=== PATIENT | female | born 1930 | race Caucasian/White ===

== ENCOUNTER 2016-04-05 15:01 | Emergency (ER) | payer OTHER ==
[~2016-04-05] VITALS: Ht 165.1 cm; Wt 87.5 kg
[~2016-04-05 15:01] MED LIST: ADULT LOW DOSE81 M1 PO; ADVAIR HFA120 INHALA IH; ALPRAZOLAM0.5 MG PO; ASPIRIN PO; BUSPAR10 MG PO; BUSPIRONE HCL10 MG PO; Buspar PO; CEFUROXIME500 MG PO; CELEBREX200 MG PO; Cymbalta PO; DUONEB 2.5-0.5 M3 ML AEROSOL; FUROSEMIDE40 MG PO; IMDUR60 MG PO; ISOSORBIDE MONO60 MG PO; Imdur PO; K-DUR20 MEQ PO; KEFLEX500 MG PO; LEVAQUIN750 MG PO; LISINOPRIL5 MG PO; METFORMIN HCL500 MG PO; NEXIUM40 MG PO; PREDNISONE10 MG PO; PREVACID30 MG PO; Prevacid PO; REMERON15 M2 PO; ROBITUSSIN100 MG/5 M PO; ST. JOSEPH ASPI81 MG PO; TOPROL XL50 MG PO; TRAMADOL HCL50 MG PO; Toprol XL PO; ULTRAM50 MG PO; Ultram PO; VITAMIN D1000 UNIT PO; VYTORIN 10/41 TABLET PO; Vytorin 10/20 PO; XANAX0.5 MG PO; Xanax PO
[2016-04-05 16:55] LABS: HEMATOCRIT 36.6 % (36.0-46.0); MCH 30.7 PG (29.0-34.0); MCHC 33.3 G/DL (30.0-36.0); MCV 92.2 FL (83-99); PLATELET COUNT 152 K/uL (156-360); RBC DIS.WIDTH-CV 12.7 % (11.8-14.6); RBC DIS.WIDTH-SD 41.9 % (39-53); RED BLOOD COUNT 3.97 M/uL (3.80-5.20); WHITE BLOOD COUNT 4.6 K/uL (4.1-10.2)
[2016-04-05 17:05] LABS: CHLORIDE 103 mEq/L (99-109); POTASSIUM 4.4 mEq/L (3.7-5.4); SODIUM 135 mEq/L (136-147)
[2016-04-05 17:06] LABS: GLUCOSE 100 mg/dL (70-99)
[2016-04-05 17:08] LABS: ADD MIUA? NO; BILIRUBIN NEGATIVE; BLOOD NEGATIVE; COLOR YELLOW ((YELLOW)); GLUCOSE (STRIP) NEGATIVE; KETONES NEGATIVE; LEUKOCYTES NEGATIVE; NITRITE NEGATIVE; PROTEIN (STRIP) NEGATIVE; UCUL ADDED? NO; UROBILINOGEN 0.2 MG/DL (0.2-1.0)
[2016-04-05 17:08] LABS: ANION GAP 6 MEQ/L (2-14)
[2016-04-05 17:10] LABS: GFR ESTIMATE (CALCULATED) 50 mL/min/
[2016-04-05 17:11] LABS: UREA NITROGEN (BUN) 21 mg/dL (9-23)
[2016-04-05] MEDS ORDERED: MIRALAX17 GM PO (17:44)
[2016-04-05 18:06] VITALS: BP 160/77
== END 2016-04-05 18:32 | disposition home or self-care (01) ==
LOC: EME 15:01
PROVIDERS: Physician Assistant
DX: K59.00 Constipation, unspecified (principal)
CPT/HCPCS: 74020; 80048; 81003; 85027; 99281; 99284

== ENCOUNTER 2016-07-18 17:29 | Emergency (ER) | payer OTHER ==
[~2016-07-18] VITALS: Ht 165.1 cm; Wt 90.1 kg
[~2016-07-18 17:29] MED LIST changes: +MIRALAX17 GM PO
[2016-07-18 17:36] VITALS: BP 138/83
== END 2016-07-18 18:54 | disposition home or self-care (01) ==
LOC: EXP 17:29 → EME 17:29 → EXP 18:54
DX: S61.212A Laceration without foreign body of right middle finger without damage to nail, initial encounter (principal); W18.30XA Fall on same level, unspecified, initial encounter; Z23 Encounter for immunization; Z79.82 Long term (current) use of aspirin; Z87.891 Personal history of nicotine dependence
CPT/HCPCS: 99281; 99284

== ENCOUNTER 2016-10-27 03:51 | Emergency (ER) | payer OTHER ==
[~2016-10-27] VITALS: Ht 165.1 cm; Wt 86.5 kg
[2016-10-27 06:46] VITALS: BP 163/83
== END 2016-10-27 06:47 | disposition home or self-care (01) ==
LOC: EME 03:51
PROC: 0HQ1XZZ Repair Face Skin, External Approach (ICD-10-PCS; principal; 2016-10-27)
DX: S01.81XA Laceration without foreign body of other part of head, initial encounter (principal); S61.412A Laceration without foreign body of left hand, initial encounter; W01.198A Fall on same level from slipping, tripping and stumbling with subsequent striking against other object, initial encounter; Z79.82 Long term (current) use of aspirin; F03.90 Unspecified dementia, unspecified severity, without behavioral disturbance, psychotic disturbance, mood disturbance, and anxiety; I10 Essential (primary) hypertension; Z95.5 Presence of coronary angioplasty implant and graft; Z87.891 Personal history of nicotine dependence
CPT/HCPCS: 70450; 73110; 73130; 81003; 99281; 99284

== ENCOUNTER 2017-04-04 15:22 | Inpatient (IN) | payer OTHER ==
[~2017-04-04] VITALS: Ht 165.1 cm; Wt 75.5 kg
[2017-04-04 16:04] LABS: HEMATOCRIT 33.4 % (36.0-46.0); HEMOGLOBIN 10.9 G/DL (11.9-15.5); MCH 30.8 PG (29.0-34.0); MCHC 32.6 G/DL (30.0-36.0); MCV 94.4 FL (83-99); PLATELET COUNT 132 K/uL (156-360); RBC DIS.WIDTH-CV 13.2 % (11.8-14.6); RBC DIS.WIDTH-SD 45.7 % (39-53); RED BLOOD COUNT 3.54 M/uL (3.80-5.20); WHITE BLOOD COUNT 8.5 K/uL (4.1-10.2)
[2017-04-04 16:13] LABS: CHLORIDE 105 mEq/L (99-109); POTASSIUM 4.4 mEq/L (3.7-5.4); SODIUM 142 mEq/L (136-147)
[2017-04-04 16:14] LABS: GLUCOSE 92 mg/dL (70-99)
[2017-04-04 16:18] LABS: CREATININE 1.1 mg/dL (0.6-1.3); GFR ESTIMATE (CALCULATED) 50 mL/min/
[2017-04-04 16:21] LABS: CREATINE KINASE 142 IU/L (1-294)
[2017-04-04 16:27] LABS: TROP-I INTERPRETATION NEGATIVE; TROPONIN-I 0.11 ng/mL (0.0-0.30)
[2017-04-04 16:35] LABS: APPEARANCE SL.HAZY ((CLEAR)); BILIRUBIN NEGATIVE; BLOOD MODERATE; COLOR YELLOW ((YELLOW)); GLUCOSE (STRIP) NEGATIVE; KETONES NEGATIVE; LEUKOCYTES LARGE; NITRITE POSITIVE; PROTEIN (STRIP) 30; SPECIFIC GRAVITY 1.012 (1.000-1.030); UROBILINOGEN 0.2 MG/DL (0.2-1.0)
[2017-04-04 16:40] LABS: BACTERIA 3+ /HPF; EPITHELIAL CELLS RARE /HPF; MUCUS TRACE /LPF; RED BLOOD CELLS 0-5 /HPF (0-5); WHITE BLOOD CELLS TNTC /HPF (0-5)
[2017-04-04 17:01] LABS: UREA NITROGEN (BUN) 27 mg/dL (9-23)
[2017-04-04] MEDS ORDERED: ALPRAZOLAM0.5 MG PO (19:07)
[2017-04-04] MEDS ORDERED: CITALOPRAM HBR40 MG PO (19:08)
[2017-04-04] MEDS ORDERED: MIRTAZAPINE15 MG PO (19:11)
[2017-04-04] MEDS ORDERED: SIMVASTATIN40 MG PO (19:11)
[2017-04-04] MEDS ORDERED: BUSPAR15 MG PO (19:12)
[2017-04-04] MEDS ORDERED: PROBIOTIC1 EAC1 PO (19:18)
[2017-04-04] MEDS ORDERED: TYLENOL EXTRA500 MG PO (19:19)
[2017-04-04] MEDS ORDERED: METAMUCIL POWD822 G1 PO (19:20)
[2017-04-04 22:10] VITALS: BP 124/62
[2017-04-04 23:28] VITALS: BP 128/65
[2017-04-05 03:41] VITALS: BP 116/57
[2017-04-05 06:44] LABS: BASOPHIL COUNT 0.1 K/uL (0-0.1); EOSINOPHIL (%) 1.6 % (0-5); EOSINOPHIL COUNT 0.1 K/uL (0-0.3); HEMATOCRIT 31.2 % (36.0-46.0); HEMOGLOBIN 9.9 G/DL (11.9-15.5); IMMATURE GRANULOCYTE (%) 0.2 % (0.0-0.7); LYMPHOCYTE (%) 19.8 % (15-42); MCH 30.5 PG (29.0-34.0); MCHC 31.7 G/DL (30.0-36.0); MONOCYTE (%) 12.3 % (3-12); MONOCYTE COUNT 0.6 K/uL (0-0.8); NEUTROPHIL (%) 65.1 % (45-76); NEUTROPHIL COUNT 3.3 K/uL (1.8-6.4); PLATELET COUNT 103 K/uL (156-360); RBC DIS.WIDTH-CV 13.6 % (11.8-14.6); RED BLOOD COUNT 3.25 M/uL (3.80-5.20); WHITE BLOOD COUNT 5.1 K/uL (4.1-10.2)
[2017-04-05 07:16] LABS: CHLORIDE 107 MEQ/L (99-109); GFR ESTIMATE (CALCULATED) 55 mL/min/; GLUCOSE 81 mg/dL (70-99); SODIUM 141 MEQ/L (136-147); UREA NITROGEN (BUN) 21 mg/dL (9-23)
[2017-04-05 08:19] VITALS: BP 124/58
[2017-04-05 11:36] VITALS: BP 103/53
[2017-04-05 16:00] VITALS: BP 123/58
[2017-04-05 19:24] VITALS: BP 116/55
[2017-04-06 00:15] VITALS: BP 150/67
[2017-04-06 04:19] VITALS: BP 117/58
[2017-04-06 07:00] VITALS: BP 130/58
[2017-04-06 11:54] VITALS: BP 138/82
[2017-04-06 15:32] VITALS: BP 96/42
[2017-04-06 21:21] VITALS: BP 102/62
[2017-04-07] VITALS (7 sets, daily range): BP systolic 100–133; BP diastolic 52–68
[2017-04-07 06:38] LABS: BASOPHIL (%) 1.4 % (0-1); EOSINOPHIL (%) 3.8 % (0-5); EOSINOPHIL COUNT 0.1 K/uL (0-0.3); HEMATOCRIT 30.9 % (36.0-46.0); HEMOGLOBIN 9.8 G/DL (11.9-15.5); IMMATURE GRANULOCYTE (%) 0.3 % (0.0-0.7); LYMPHOCYTE (%) 24.6 % (15-42); LYMPHOCYTE COUNT 0.7 K/uL (1.0-2.8); MCH 30.5 PG (29.0-34.0); MCHC 31.7 G/DL (30.0-36.0); MCV 96.3 FL (83-99); MONOCYTE (%) 12.1 % (3-12); MONOCYTE COUNT 0.4 K/uL (0-0.8); NEUTROPHIL (%) 57.8 % (45-76); NEUTROPHIL COUNT 1.7 K/uL (1.8-6.4); PLATELET COUNT 100 K/uL (156-360); RBC DIS.WIDTH-CV 13.6 % (11.8-14.6); RBC DIS.WIDTH-SD 48.1 % (39-53); RED BLOOD COUNT 3.21 M/uL (3.80-5.20); WHITE BLOOD COUNT 2.9 K/uL (4.1-10.2)
[2017-04-07 07:06] LABS: CHLORIDE 109 MEQ/L (99-109); CREATININE 0.9 MG/DL (0.6-1.3); GFR ESTIMATE (CALCULATED) > 59 mL/min/; GLUCOSE 94 mg/dL (70-99); POTASSIUM 3.9 MEQ/L (3.7-5.4); SODIUM 144 MEQ/L (136-147); UREA NITROGEN (BUN) 13 mg/dL (9-23)
[2017-04-07 21:14] LABS: C DIFF TOXIN NEGATIVE (NEGATIVE)
[2017-04-08 03:41] VITALS: BP 109/55
[2017-04-08 07:26] VITALS: BP 78/42
[2017-04-08 15:42] VITALS: BP 64/36
[2017-04-09 00:23] VITALS: BP 101/50
[2017-04-09 06:50] VITALS: BP 188/86
[2017-04-09 16:26] VITALS: BP 137/65
[2017-04-09 23:13] VITALS: BP 120/57
[2017-04-10 07:10] LABS: BASOPHIL COUNT 0.1 K/uL (0-0.1); EOSINOPHIL (%) 3.8 % (0-5); EOSINOPHIL COUNT 0.2 K/uL (0-0.3); IMMATURE GRANULOCYTE (%) 0.2 % (0.0-0.7); LYMPHOCYTE (%) 18.9 % (15-42); LYMPHOCYTE COUNT 0.9 K/uL (1.0-2.8); MCH 29.7 PG (29.0-34.0); MCHC 31.3 G/DL (30.0-36.0); MONOCYTE (%) 10.3 % (3-12); MONOCYTE COUNT 0.5 K/uL (0-0.8); NEUTROPHIL (%) 65.8 % (45-76); NEUTROPHIL COUNT 3.1 K/uL (1.8-6.4); PLATELET COUNT 128 K/uL (156-360); RBC DIS.WIDTH-CV 13.5 % (11.8-14.6); RBC DIS.WIDTH-SD 46.8 % (39-53); RED BLOOD COUNT 3.37 M/uL (3.80-5.20); WHITE BLOOD COUNT 4.8 K/uL (4.1-10.2)
[2017-04-10 07:38] LABS: CHLORIDE 105 MEQ/L (99-109); GFR ESTIMATE (CALCULATED) 55 mL/min/; GLUCOSE 89 mg/dL (70-99); SODIUM 144 MEQ/L (136-147); UREA NITROGEN (BUN) 16 mg/dL (9-23)
[2017-04-10 08:00] VITALS: BP 140/76
[2017-04-10] MEDS ORDERED: PANTOPRAZOLE SO40 MG PO (11:02)
== END 2017-04-10 13:34 | DRG 194 ==
LOC: EME 15:22 → EDOF 19:49 → 2EAST 19:49 → ENRESERV 19:50 → 2EAST 21:06
PROVIDERS: Family Medicine Sports Medicine; Physician Assistant
DX: J15.9 Unspecified bacterial pneumonia (principal); J44.1 Chronic obstructive pulmonary disease with (acute) exacerbation; J44.0 Chronic obstructive pulmonary disease with (acute) lower respiratory infection; N30.00 Acute cystitis without hematuria; S01.01XA Laceration without foreign body of scalp, initial encounter; S20.229A Contusion of unspecified back wall of thorax, initial encounter; Y92.002 Bathroom of unspecified non-institutional (private) residence as the place of occurrence of the external cause; Y93.E1 Activity, personal bathing and showering; W18.2XXA Fall in (into) shower or empty bathtub, initial encounter; K21.9 Gastro-esophageal reflux disease without esophagitis; E78.5 Hyperlipidemia, unspecified; I25.10 Atherosclerotic heart disease of native coronary artery without angina pectoris; I50.9 Heart failure, unspecified; I11.0 Hypertensive heart disease with heart failure; E66.9 Obesity, unspecified; F32.9 Major depressive disorder, single episode, unspecified; I44.7 Left bundle-branch block, unspecified; B96.20 Unspecified Escherichia coli [E. coli] as the cause of diseases classified elsewhere; F41.1 Generalized anxiety disorder; Z98.61 Coronary angioplasty status; Z87.01 Personal history of pneumonia (recurrent); R74.8 Abnormal levels of other serum enzymes; E11.9 Type 2 diabetes mellitus without complications; I71.2 Thoracic aortic aneurysm, without rupture; Z16.24 Resistance to multiple antibiotics; Z16.12 Extended spectrum beta lactamase (ESBL) resistance; Z85.3 Personal history of malignant neoplasm of breast; R09.02 Hypoxemia; F03.90 Unspecified dementia, unspecified severity, without behavioral disturbance, psychotic disturbance, mood disturbance, and anxiety; D69.6 Thrombocytopenia, unspecified; D64.9 Anemia, unspecified
CPT/HCPCS: 70450; 71046; 71250; 71275; 72125; 74174; 80048; 81003; 82550; 83605; 84484; 85025; 85027; 87040; 87070; 87077; 87086; 87186; 87205; 87449; 87493; 93005; 94640; 94640 76; 94760; 94799; 99202; 99281; 99285; J0456; J0696; J1335; J1650; J7030; J7040; J7050

== ENCOUNTER 2017-05-04 12:21 | Emergency (ER) | payer OTHER ==
[~2017-05-04] VITALS: Ht 165.1 cm; Wt 78.4 kg
[~2017-05-04 12:21] MED LIST changes: +BUSPAR15 MG PO; +CITALOPRAM HBR40 MG PO; +METAMUCIL POWD822 G1 PO; +MIRTAZAPINE15 MG PO; +PANTOPRAZOLE SO40 MG PO; +PROBIOTIC1 EAC1 PO; +SIMVASTATIN40 MG PO; +TYLENOL EXTRA500 MG PO
[2017-05-04 13:27] LABS: EOSINOPHIL (%) 0.5 % (0-5); HEMATOCRIT 36.3 % (36.0-46.0); HEMOGLOBIN 11.2 G/DL (11.9-15.5); IMMATURE GRANULOCYTE (%) 0.5 % (0.0-0.7); LYMPHOCYTE (%) 12.2 % (15-42); LYMPHOCYTE COUNT 0.5 K/uL (1.0-2.8); MCH 30.4 PG (29.0-34.0); MCHC 30.9 G/DL (30.0-36.0); MCV 98.6 FL (83-99); MONOCYTE (%) 9.4 % (3-12); MONOCYTE COUNT 0.4 K/uL (0-0.8); NEUTROPHIL (%) 76.4 % (45-76); NEUTROPHIL COUNT 3.2 K/uL (1.8-6.4); PLATELET COUNT 111 K/uL (156-360); RBC DIS.WIDTH-CV 13.2 % (11.8-14.6); RBC DIS.WIDTH-SD 47.6 % (39-53); RED BLOOD COUNT 3.68 M/uL (3.80-5.20); WHITE BLOOD COUNT 4.2 K/uL (4.1-10.2)
[2017-05-04 13:39] LABS: CHLORIDE 104 mEq/L (99-109); POTASSIUM 4.6 mEq/L (3.7-5.4); SODIUM 143 mEq/L (136-147)
[2017-05-04 13:40] LABS: GLUCOSE 112 mg/dL (70-99)
[2017-05-04 13:44] LABS: GFR ESTIMATE (CALCULATED) 55 mL/min/
[2017-05-04 13:45] LABS: UREA NITROGEN (BUN) 16 mg/dL (9-23)
[2017-05-04 13:48] LABS: TROP-I INTERPRETATION NEGATIVE; TROPONIN-I 0.02 ng/mL (0.0-0.30)
[2017-05-04 17:00] VITALS: BP 117/75
== END 2017-05-04 18:51 ==
LOC: EME 12:21
PROVIDERS: Emergency Medicine
DX: I11.0 Hypertensive heart disease with heart failure (principal); I50.9 Heart failure, unspecified; R00.0 Tachycardia, unspecified; I48.91 Unspecified atrial fibrillation; F03.90 Unspecified dementia, unspecified severity, without behavioral disturbance, psychotic disturbance, mood disturbance, and anxiety; J44.9 Chronic obstructive pulmonary disease, unspecified; I25.10 Atherosclerotic heart disease of native coronary artery without angina pectoris; F32.9 Major depressive disorder, single episode, unspecified; Z95.5 Presence of coronary angioplasty implant and graft; Z87.891 Personal history of nicotine dependence; Z90.49 Acquired absence of other specified parts of digestive tract; Z91.81 History of falling; Z88.5 Allergy status to narcotic agent
CPT/HCPCS: 71045; 80048; 83880; 84484; 85025; 93005; 99281; 99285; J1940; J2060

== ENCOUNTER 2017-05-25 13:33 | Emergency (ER) | payer OTHER ==
[~2017-05-25] VITALS: Ht 165.1 cm; Wt 85.0 kg
[2017-05-25 14:34] LABS: INTER. NORMALIZED RATIO 1.1
[2017-05-25 14:37] LABS: PTT 28.8 SEC (25-37)
[2017-05-25 14:50] LABS: TROP-I INTERPRETATION NEGATIVE; TROPONIN-I 0.02 ng/mL (0.0-0.30)
[2017-05-25] MEDS ORDERED: ELIQUIS5 MG PO (16:05)
[2017-05-25 16:16] LABS: APPEARANCE CLEAR ((CLEAR)); BILIRUBIN NEGATIVE; BLOOD NEGATIVE; COLOR STRAW ((YELLOW)); GLUCOSE (STRIP) NEGATIVE; KETONES NEGATIVE; LEUKOCYTES SMALL; NITRITE NEGATIVE; PROTEIN (STRIP) NEGATIVE; SPECIFIC GRAVITY 1.009 (1.000-1.030); UROBILINOGEN 0.2 MG/DL (0.2-1.0)
[2017-05-25] MEDS ORDERED: CYANOCOBAL1000 MCG/2 IM ×2 (16:18→16:20)
[2017-05-25 16:22] LABS: BACTERIA RARE /HPF; EPITHELIAL CELLS RARE /HPF; HYALINE CASTS 20-30 /LPF; MUCUS TRACE /LPF; RED BLOOD CELLS 0-5 /HPF (0-5); UCUL ADDED? YES; WHITE BLOOD CELLS 30-40 /HPF (0-5)
[2017-05-25] MEDS ORDERED: LASIX20 MG PO (16:22)
[2017-05-25] MEDS ORDERED: MIRTAZAPINE15 MG PO (16:25)
[2017-05-25] MEDS ORDERED: METOPROLOL SUCC25 MG PO (16:25)
[2017-05-25] MEDS ORDERED: PROTONIX40 MG PO (16:27)
[2017-05-25] MEDS ORDERED: PROBIOTIC1 EAC1 PO (16:28)
[2017-05-25 18:37] VITALS: BP 121/89
== END 2017-05-25 18:59 ==
LOC: EME 13:33
PROVIDERS: Emergency Medicine Emergency Medical Services
DX: I48.91 Unspecified atrial fibrillation (principal); I11.0 Hypertensive heart disease with heart failure; I50.9 Heart failure, unspecified; J44.9 Chronic obstructive pulmonary disease, unspecified; F03.90 Unspecified dementia, unspecified severity, without behavioral disturbance, psychotic disturbance, mood disturbance, and anxiety; F32.9 Major depressive disorder, single episode, unspecified; Z90.49 Acquired absence of other specified parts of digestive tract; Z95.5 Presence of coronary angioplasty implant and graft; Z87.891 Personal history of nicotine dependence; Z88.5 Allergy status to narcotic agent
CPT/HCPCS: 71045; 80053; 81003; 83880; 84443; 84484; 85025 91; 85610; 85730; 87077; 87086; 87186; 93005; 99281; 99285

== ENCOUNTER 2017-06-01 22:35 | Inpatient (IN) | payer OTHER ==
[~2017-06-01] VITALS: Ht 165.1 cm; Wt 81.7 kg
[~2017-06-01 22:35] MED LIST changes: +CYANOCOBAL1000 MCG/2 IM; +ELIQUIS5 MG PO; +LASIX20 MG PO; +METOPROLOL SUCC25 MG PO; +PROTONIX40 MG PO
[2017-06-01 23:14] LABS: HEMATOCRIT 37.3 % (36.0-46.0); HEMOGLOBIN 11.3 G/DL (11.9-15.5); MCH 29.8 PG (29.0-34.0); MCHC 30.3 G/DL (30.0-36.0); MCV 98.4 FL (83-99); PLATELET COUNT 124 K/uL (156-360); RBC DIS.WIDTH-CV 13.2 % (11.8-14.6); RBC DIS.WIDTH-SD 47.4 % (39-53); RED BLOOD COUNT 3.79 M/uL (3.80-5.20); WHITE BLOOD COUNT 5.2 K/uL (4.1-10.2)
[2017-06-01 23:26] LABS: CHLORIDE 92 mEq/L (99-109); SODIUM 146 mEq/L (136-147)
[2017-06-01 23:28] LABS: GLUCOSE 126 mg/dL (70-99)
[2017-06-01 23:32] LABS: CREATININE 1.6 mg/dL (0.6-1.3); GFR ESTIMATE (CALCULATED) 32 mL/min/
[2017-06-01 23:33] LABS: UREA NITROGEN (BUN) 27 mg/dL (9-23)
[2017-06-01 23:36] LABS: TROP-I INTERPRETATION NEGATIVE; TROPONIN-I 0.03 ng/mL (0.0-0.30)
[2017-06-01 23:56] LABS: INTER. NORMALIZED RATIO 1.8
[2017-06-01 23:58] LABS: PTT 31.6 SEC (25-37)
[2017-06-02] VITALS (7 sets, daily range): BP systolic 89–157; BP diastolic 57–88
[2017-06-02 06:41] LABS: CHLORIDE 93 MEQ/L (99-109); CREATININE 1.4 MG/DL (0.6-1.3); GFR ESTIMATE (CALCULATED) 38 mL/min/; GLUCOSE 98 mg/dL (70-99); POTASSIUM 4.4 MEQ/L (3.7-5.4); SODIUM 144 MEQ/L (136-147); UREA NITROGEN (BUN) 28 mg/dL (9-23)
[2017-06-02 11:01] LABS: TROP-I INTERPRETATION NEGATIVE; TROPONIN-I 0.04 ng/mL (0.0-0.30)
[2017-06-03] VITALS (9 sets, daily range): BP systolic 89–166; BP diastolic 52–80
[2017-06-03 05:06] LABS: BASOPHIL (%) 0.8 % (0-1); EOSINOPHIL (%) 1.8 % (0-5); EOSINOPHIL COUNT 0.1 K/uL (0-0.3); HEMATOCRIT 31.5 % (36.0-46.0); HEMOGLOBIN 9.9 G/DL (11.9-15.5); IMMATURE GRANULOCYTE (%) 0.4 % (0.0-0.7); LYMPHOCYTE (%) 21.7 % (15-42); LYMPHOCYTE COUNT 1.1 K/uL (1.0-2.8); MCH 29.9 PG (29.0-34.0); MCHC 31.4 G/DL (30.0-36.0); MCV 95.2 FL (83-99); MONOCYTE (%) 12.7 % (3-12); MONOCYTE COUNT 0.7 K/uL (0-0.8); NEUTROPHIL (%) 62.6 % (45-76); NEUTROPHIL COUNT 3.2 K/uL (1.8-6.4); PLATELET COUNT 109 K/uL (156-360); RBC DIS.WIDTH-CV 13.3 % (11.8-14.6); RBC DIS.WIDTH-SD 46.6 % (39-53); RED BLOOD COUNT 3.31 M/uL (3.80-5.20); WHITE BLOOD COUNT 5.1 K/uL (4.1-10.2)
[2017-06-03 05:17] LABS: CHLORIDE 93 mEq/L (99-109); POTASSIUM 3.6 mEq/L (3.7-5.4); SODIUM 143 mEq/L (136-147)
[2017-06-03 05:19] LABS: GLUCOSE 76 mg/dL (70-99)
[2017-06-03 05:23] LABS: CREATININE 1.2 mg/dL (0.6-1.3); GFR ESTIMATE (CALCULATED) 45 mL/min/
[2017-06-03 05:24] LABS: UREA NITROGEN (BUN) 30 mg/dL (9-23)
[2017-06-03 05:30] LABS: CARBON DIOXIDE (BICARBONATE) > 40.0 mEq/L (20-31)
[2017-06-04 00:16] VITALS: BP 109/66
[2017-06-04 04:22] VITALS: BP 114/70
[2017-06-04 05:45] LABS: BASOPHIL (%) 1.2 % (0-1); BASOPHIL COUNT 0.1 K/uL (0-0.1); EOSINOPHIL (%) 2.2 % (0-5); EOSINOPHIL COUNT 0.1 K/uL (0-0.3); HEMATOCRIT 33.2 % (36.0-46.0); HEMOGLOBIN 10.1 G/DL (11.9-15.5); LYMPHOCYTE COUNT 0.9 K/uL (1.0-2.8); MCH 29.1 PG (29.0-34.0); MCHC 30.4 G/DL (30.0-36.0); MCV 95.7 FL (83-99); MONOCYTE COUNT 0.6 K/uL (0-0.8); NEUTROPHIL (%) 58.6 % (45-76); NEUTROPHIL COUNT 2.4 K/uL (1.8-6.4); PLATELET COUNT 95 K/uL (156-360); RBC DIS.WIDTH-CV 13.2 % (11.8-14.6); RBC DIS.WIDTH-SD 46.2 % (39-53); RED BLOOD COUNT 3.47 M/uL (3.80-5.20); WHITE BLOOD COUNT 4.1 K/uL (4.1-10.2)
[2017-06-04 07:14] LABS: CHLORIDE 94 MEQ/L (99-109); CREATININE 1.2 MG/DL (0.6-1.3); GFR ESTIMATE (CALCULATED) 45 mL/min/; GLUCOSE 78 mg/dL (70-99); IRON 32 MCG/DL (35-150); POTASSIUM 3.6 MEQ/L (3.7-5.4); SODIUM 144 MEQ/L (136-147); TRANSFERRIN (TIBC) 282.6 mg/dL (215-380); TRANSFERRIN SATUR. 11 % (20-55); UREA NITROGEN (BUN) 27 mg/dL (9-23)
[2017-06-04 07:22] LABS: CARBON DIOXIDE (BICARBONATE) > 40.0 MEQ/L (20-31)
[2017-06-04 07:58] LABS: THYROTROPIN (TSH) 3.2 MIU/L (0.4-5.5)
[2017-06-04 08:09] VITALS: BP 132/71
[2017-06-04 11:14] VITALS: BP 100/60
[2017-06-04] MEDS ORDERED: LISINOPRIL2.5 MG PO (15:59)
[2017-06-04] MEDS ORDERED: METOPROLOL SUCC50 MG PO (15:59)
[2017-06-04] MEDS ORDERED: ASPIR-LOW81 MG PO (15:59)
[2017-06-04] MEDS ORDERED: FUROSEMIDE40 MG PO (16:29)
[2017-06-04] MEDS ORDERED: K-DUR20 MEQ PO (16:30)
[2017-06-04 20:01] VITALS: BP 105/56
== END 2017-06-04 20:33 | DRG 291 ==
LOC: EME → EDBD 22:35 → EME 22:35 → 4EAST 06-02 00:05 → 3EAST 06-02 00:05 → EDOF 06-02 00:05 → ENRESERV 06-02 00:32 → 4EAST 06-02 01:14 → ENRESERV 06-02 21:16 → 3EAST 06-02 21:21
PROVIDERS: Emergency Medicine; Family Medicine Sports Medicine; Internal Medicine Cardiovascular Disease
DX: I50.23 Acute on chronic systolic (congestive) heart failure (principal); J96.01 Acute respiratory failure with hypoxia; J44.1 Chronic obstructive pulmonary disease with (acute) exacerbation; I48.2 Chronic atrial fibrillation; E87.2 Acidosis; E11.22 Type 2 diabetes mellitus with diabetic chronic kidney disease; I25.10 Atherosclerotic heart disease of native coronary artery without angina pectoris; Z66 Do not resuscitate; N18.3 Chronic kidney disease, stage 3 (moderate); I71.2 Thoracic aortic aneurysm, without rupture; I13.0 Hypertensive heart and chronic kidney disease with heart failure and stage 1 through stage 4 chronic kidney disease, or unspecified chronic kidney disease; E78.5 Hyperlipidemia, unspecified; K21.9 Gastro-esophageal reflux disease without esophagitis; F41.1 Generalized anxiety disorder; F32.9 Major depressive disorder, single episode, unspecified; D63.1 Anemia in chronic kidney disease; E66.9 Obesity, unspecified; F03.90 Unspecified dementia, unspecified severity, without behavioral disturbance, psychotic disturbance, mood disturbance, and anxiety; I44.7 Left bundle-branch block, unspecified; Z68.29 Body mass index [BMI] 29.0-29.9, adult; M19.90 Unspecified osteoarthritis, unspecified site; Z87.01 Personal history of pneumonia (recurrent); Z99.81 Dependence on supplemental oxygen; Z95.5 Presence of coronary angioplasty implant and graft; Z91.81 History of falling; Z85.3 Personal history of malignant neoplasm of breast; Z72.0 Tobacco use; Z79.01 Long term (current) use of anticoagulants; Z79.82 Long term (current) use of aspirin; Z79.899 Other long term (current) drug therapy
CPT/HCPCS: 71045; 80048; 80048 91; 81003; 83540; 83605; 83880; 84443; 84466; 84484; 85025; 85027; 85610; 85730; 87040; 87502; 93005; 93306; 94640; 94640 76; 94799; 99202; 99281; 99285; J1160; J1650; J1940

== ENCOUNTER 2017-08-03 09:54 | Emergency (ER) | payer OTHER ==
[~2017-08-03] VITALS: Ht 165.1 cm; Wt 63.3 kg
[~2017-08-03 09:54] MED LIST changes: +ASPIR-LOW81 MG PO; +LISINOPRIL2.5 MG PO; +METOPROLOL SUCC50 MG PO
[2017-08-03 10:15] LABS: HEMATOCRIT 29.5 % (36.0-46.0); HEMOGLOBIN 9.3 G/DL (11.9-15.5); MCH 28.3 PG (29.0-34.0); MCHC 31.5 G/DL (30.0-36.0); MCV 89.7 FL (83-99); PLATELET COUNT 171 K/uL (156-360); RBC DIS.WIDTH-CV 13.7 % (11.8-14.6); RBC DIS.WIDTH-SD 44.7 % (39-53); RED BLOOD COUNT 3.29 M/uL (3.80-5.20); WHITE BLOOD COUNT 5.4 K/uL (4.1-10.2)
[2017-08-03 10:23] LABS: INTER. NORMALIZED RATIO 1.3
[2017-08-03 10:26] LABS: ALBUMIN 2.8 g/dL (3.2-4.8); CHLORIDE 99 mEq/L (99-109); POTASSIUM 4.8 mEq/L (3.7-5.4); SODIUM 139 mEq/L (136-147)
[2017-08-03 10:29] LABS: GLUCOSE 112 mg/dL (70-99); TOTAL PROTEIN 5.8 g/dL (6.4-8.3)
[2017-08-03 10:30] LABS: TOTAL BILIRUBIN 0.5 mg/dL (0.0-1.0)
[2017-08-03 10:32] LABS: ALKALINE PHOSPHATASE 84 IU/L (3-129); CREATININE 1.3 mg/dL (0.6-1.3); GFR ESTIMATE (CALCULATED) 41 mL/min/
[2017-08-03 10:33] LABS: UREA NITROGEN (BUN) 22 mg/dL (9-23)
[2017-08-03 10:34] LABS: AST (GOT) 14 IU/L (2-34)
[2017-08-03 10:35] LABS: ALT (GPT) 10 IU/L (3-49)
[2017-08-03 10:36] LABS: TROP-I INTERPRETATION NEGATIVE; TROPONIN-I 0.02 ng/mL (0.0-0.30)
[2017-08-03 11:41] LABS: APPEARANCE SL.HAZY ((CLEAR)); BILIRUBIN NEGATIVE; BLOOD NEGATIVE; COLOR YELLOW ((YELLOW)); GLUCOSE (STRIP) NEGATIVE; KETONES NEGATIVE; LEUKOCYTES MODERATE; NITRITE NEGATIVE; PROTEIN (STRIP) NEGATIVE; SPECIFIC GRAVITY 1.016 (1.000-1.030); UROBILINOGEN 0.2 MG/DL (0.2-1.0)
[2017-08-03 11:51] LABS: BACTERIA RARE /HPF; EPITHELIAL CELLS 2+ /HPF; MUCUS TRACE /LPF; RED BLOOD CELLS 0-5 /HPF (0-5); UCUL ADDED? YES; WHITE BLOOD CELLS TNTC /HPF (0-5)
[2017-08-03 12:26] LABS: TROP-I INTERPRETATION NEGATIVE; TROPONIN-I 0.02 ng/mL (0.0-0.30)
[2017-08-03] MEDS ORDERED: CARDIZEM CD240 MG PO (13:01)
[2017-08-03] MEDS ORDERED: KEFLEX500 MG PO (13:01)
[2017-08-03 13:37] VITALS: BP 97/71
== END 2017-08-03 15:49 ==
LOC: EME 09:54
PROVIDERS: Nurse Practitioner Family
DX: I48.91 Unspecified atrial fibrillation (principal); N39.0 Urinary tract infection, site not specified; I95.9 Hypotension, unspecified; I11.0 Hypertensive heart disease with heart failure; I50.9 Heart failure, unspecified; F32.9 Major depressive disorder, single episode, unspecified; J44.9 Chronic obstructive pulmonary disease, unspecified; F03.90 Unspecified dementia, unspecified severity, without behavioral disturbance, psychotic disturbance, mood disturbance, and anxiety; Z90.10 Acquired absence of unspecified breast and nipple; Z95.5 Presence of coronary angioplasty implant and graft; Z88.5 Allergy status to narcotic agent; Z87.891 Personal history of nicotine dependence; Z79.01 Long term (current) use of anticoagulants
CPT/HCPCS: 71046; 80053; 81003; 83880; 84484; 85027; 85610; 87086 GA; 93005; 99281; 99284; J7030

== ENCOUNTER 2017-09-01 09:56 | Emergency (ER) | payer OTHER ==
[~2017-09-01] VITALS: Ht 162.6 cm; Wt 65.8 kg
[~2017-09-01 09:56] MED LIST changes: +CARDIZEM CD240 MG PO
[2017-09-01 11:06] LABS: TROP-I INTERPRETATION NEGATIVE; TROPONIN-I 0.02 ng/mL (0.0-0.30)
[2017-09-01 11:28] LABS: APPEARANCE SL.HAZY ((CLEAR)); BILIRUBIN NEGATIVE; BLOOD NEGATIVE; COLOR AMBER ((YELLOW)); GLUCOSE (STRIP) NEGATIVE; KETONES NEGATIVE; LEUKOCYTES NEGATIVE; NITRITE POSITIVE; PROTEIN (STRIP) 100; SPECIFIC GRAVITY 1.019 (1.000-1.030)
[2017-09-01 11:38] LABS: BACTERIA 3+ /HPF; EPITHELIAL CELLS RARE /HPF; HYALINE CASTS 40-50 /LPF; MUCUS TRACE /LPF; RED BLOOD CELLS 0-5 /HPF (0-5); UCUL ADDED? YES; WHITE BLOOD CELLS 0-5 /HPF (0-5)
[2017-09-01 11:40] LABS: BASOPHIL (%) 0.4 % (0-1); EOSINOPHIL (%) 0 % (0-5); HEMATOCRIT 35.4 % (36.0-46.0); HEMOGLOBIN 10.1 G/DL (11.9-15.5); IMMATURE GRANULOCYTE (%) 0.4 % (0.0-0.7); LYMPHOCYTE (%) 4.5 % (15-42); LYMPHOCYTE COUNT 0.4 K/uL (1.0-2.8); MCH 27.4 PG (29.0-34.0); MCHC 28.5 G/DL (30.0-36.0); MCV 96.2 FL (83-99); MONOCYTE (%) 13.2 % (3-12); NEUTROPHIL (%) 81.5 % (45-76); NEUTROPHIL COUNT 6.3 K/uL (1.8-6.4); PLATELET COUNT 126 K/uL (156-360); RBC DIS.WIDTH-CV 14.9 % (11.8-14.6); RBC DIS.WIDTH-SD 52.3 % (39-53); RED BLOOD COUNT 3.68 M/uL (3.80-5.20); WHITE BLOOD COUNT 7.7 K/uL (4.1-10.2)
[2017-09-01 11:41] LABS: ALBUMIN 3.4 G/DL (3.2-4.8); ALKALINE PHOSPHATASE 102 IU/L (3-129); ALT (GPT) 115 IU/L (3-49); AST (GOT) 166 IU/L (2-34); CHLORIDE 99 MEQ/L (99-109); CREATININE 1.7 MG/DL (0.6-1.3); GFR ESTIMATE (CALCULATED) 30 mL/min/; GLUCOSE 196 mg/dL (70-99); SODIUM 138 MEQ/L (136-147); TOTAL BILIRUBIN 0.5 MG/DL (0.0-1.0); TOTAL PROTEIN 6.5 G/DL (6.4-8.3); UREA NITROGEN (BUN) 56 mg/dL (9-23)
[2017-09-01 11:42] LABS: POTASSIUM 7.2 MEQ/L (3.7-5.4)
[2017-09-01 13:59] VITALS: BP 73/49
== END 2017-09-01 14:02 ==
LOC: EME 09:56
PROVIDERS: Emergency Medicine
DX: J18.9 Pneumonia, unspecified organism (principal); J96.00 Acute respiratory failure, unspecified whether with hypoxia or hypercapnia; E87.5 Hyperkalemia; J44.0 Chronic obstructive pulmonary disease with (acute) lower respiratory infection; Z66 Do not resuscitate; Z51.5 Encounter for palliative care; I11.0 Hypertensive heart disease with heart failure; I50.9 Heart failure, unspecified; I48.91 Unspecified atrial fibrillation; F32.9 Major depressive disorder, single episode, unspecified; F03.90 Unspecified dementia, unspecified severity, without behavioral disturbance, psychotic disturbance, mood disturbance, and anxiety; Z95.5 Presence of coronary angioplasty implant and graft; Z88.5 Allergy status to narcotic agent; Z87.891 Personal history of nicotine dependence
CPT/HCPCS: 71045; 80053; 81003; 82948; 83605; 83880; 84484; 85025; 87040; 87077; 87086; 87186; 93005; 99281; 99284; J1956; J7030; J7050